=== PATIENT | female | born 1955 | race Caucasian/White ===

== ENCOUNTER 2018-05-11 21:21 | Inpatient (IN) | payer MEDICAID ==
[~2018-05-11] VITALS: Ht 165.1 cm; Wt 46.5 kg
[2018-05-11 21:40] VITALS: BP 96/48
[2018-05-11] MEDS ORDERED: HUMULIN N100 U/ML SC (21:43)
[2018-05-11] MEDS ORDERED: HUMALOG 30100 UNITS/ SC (21:43)
[2018-05-11] MEDS ORDERED: LEXAPRO20 MG PO (21:43)
[2018-05-11] MEDS ORDERED: HYDROCODON-ACE1 EAC7 PO (21:44)
[2018-05-11] MEDS ORDERED: XANAX2 MG PO (21:44)
[2018-05-11 21:52] LABS: HEMATOCRIT 33.5 % (36.0-48.0); HEMOGLOBIN 11.5 g/dL (12-16); MCH 30.3 pg (26.0-34.0); MCHC 34.3 g/dL (31.0-37.0); MCV 88.4 fL (80.0-100.0); MEAN PLATELET VOLUME 10.5 fL (7.4-10.4); PLATELET COUNT 195 10x3/uL (130-400); RBC 3.79 10x6/uL (4.00-5.40); RDW 13.7 % (11.5-14.5); WBC 20.8 10x3/uL (4.8-10.8)
--- NOTE | 2018-05-11 22:00 | NUR ---
PT STABLE, CALL LIGHT WITHIN REACH, DENIES NEEDS, WILL CONTINUE TO MONITOR. DR. BROWNING IN ROOM AT THIS TIME.
[2018-05-11 22:05] LABS: ALBUMIN 3.4 g/dL (3.4-5.0); ANION GAP 20.1 mmol/L (8-16); BILIRUBIN - TOTAL 0.47 mg/dL (0.2-1.3); CALCIUM 7.4 mg/dL (8.5-10.1); CARBON DIOXIDE 18.4 mmol/L (21.0-32.0); CREATININE - SERUM 1.5 mg/dL (0.6-1.3); POTASSIUM - SERUM 3.5 mmol/L (3.5-5.1); PROTEIN - SERUM 5.8 g/dL (6.4-8.2)
[2018-05-11 22:10] VITALS: BP 122/46
[2018-05-11 22:14] LABS: APPEARANCE CLEAR (CLEAR); BILIRUBIN NEGATIVE (NEGATIVE); COLOR YELLOW (YELLOW); GLUCOSE 1000 mg/dL (NEGATIVE); KETONE MODERATE mg/dL (NEGATIVE); NITRITE NEGATIVE (NEGATIVE); PROTEIN NEGATIVE (NEGATIVE); UROBILINOGEN NORMAL (NORMAL)
[2018-05-11 22:32] LABS: LYMPHOCYTES 10 % (15-50); MONOCYTES 3 % (2-11); NEUTROPHILS 87 % (40-80); PLATELET ESTIMATE NORMAL
[2018-05-11 22:40] VITALS: BP 127/49
--- NOTE | 2018-05-11 22:40 | NUR ---
REPORT CALLED TO JEET, ROOM 2307. PT STABLE, CALL LIGHT WITHIN REACH. WILL CONTINUE TO MONITOR.
[2018-05-11 23:15] VITALS: BP 122/52
--- NOTE | 2018-05-11 23:15 | NUR ---
ADMIT TO ROOM 2308 FROM ER, PT TRANSFERRED SELF TO BED. PT ALERT AND ANSWERING QUESTIONS APPROP. ICU MONITORS ESTAB. IVF/INSULIN GTT INFUSING TO R DAYANA, SHANIQUE C/D/I - SEE FLOWSHEET.
--- NOTE | 2018-05-11 23:20 | NUR ---
FSBS 241 - INSULIN GTT TO 5.4 UN/HR PER PROTOCOL. ADMISSION ASSESSMENT/HX PER FLOWSHEET.
[2018-05-11 23:30] VITALS: BP 128/52
[2018-05-11 23:47] VITALS: BP 122/52; BMI 17.0
[2018-05-12] VITALS (24 sets, daily range): BP systolic 117–192; BP diastolic 51–120; Ht 165.1 cm; Wt 46.5 kg
--- NOTE | 2018-05-12 01:01 | NUR ---
LAB HERE. PT REPORTS ADEQUATE PAIN RELIEF. VSS. NO SIGN OF DISTRESS.
[2018-05-12 01:27] LABS: ANION GAP 14.9 mmol/L (8-16); CALCIUM 7.4 mg/dL (8.5-10.1); CARBON DIOXIDE 23.5 mmol/L (21.0-32.0); CREATININE - SERUM 1.2 mg/dL (0.6-1.3); POTASSIUM - SERUM 3.4 mmol/L (3.5-5.1)
--- NOTE | 2018-05-12 03:15 | NUR ---
REASSESSMENT PER FLOWSHEET, NO ACUTE CHANGES. PT UP TO BSC, VOIDED 200ML CLEAR, YELLOW URINE. BACK TO BED. C/L IN REACH.
[2018-05-12 04:48] LABS: BASOPHILS 0.1 % (0-2); EOSINOPHILS 0.1 % (0-7); HEMATOCRIT 36.7 % (36.0-48.0); HEMOGLOBIN 12.6 g/dL (12-16); IMMATURE GRANULOCYTES 0.4 % (0-5); LYMPHOCYTES 12.2 % (15-50); MCH 30.4 pg (26.0-34.0); MCHC 34.3 g/dL (31.0-37.0); MCV 88.4 fL (80.0-100.0); MEAN PLATELET VOLUME 11.3 fL (7.4-10.4); MONOCYTES 7.9 % (2-11); NEUTROPHILS 79.3 % (40-80); PLATELET COUNT 204 10x3/uL (130-400); RBC 4.15 10x6/uL (4.00-5.40); RDW 13.8 % (11.5-14.5); WBC 16.5 10x3/uL (4.8-10.8)
[2018-05-12 05:14] LABS: ANION GAP 15.6 mmol/L (8-16); CALCIUM 7.7 mg/dL (8.5-10.1); CARBON DIOXIDE 22.1 mmol/L (21.0-32.0); CREATININE - SERUM 1.1 mg/dL (0.6-1.3); MAGNESIUM - SERUM 1.5 mg/dL (1.8-2.4); PHOSPHOROUS 2.3 mg/dL (2.5-4.9); POTASSIUM - SERUM 3.7 mmol/L (3.5-5.1)
--- NOTE | 2018-05-12 06:30 | NUR ---
Radha YORK PAGED AND NOTIFIED OF AM LAB AND INSULIN GTT AT 0.5 UN/HR, FSBS 116. NEW ORDERS REC'D.
[2018-05-12] MEDS ORDERED: AMBIEN10 MG PO (06:41)
[2018-05-12] MEDS ORDERED: COZAAR100 MG PO ×2 (06:42→06:43)
--- NOTE | 2018-05-12 07:00 | NUR ---
REC'D REPORT AND RESUMED CARE, AAO, VSS, C/O PAIN 10/26 IN BACK, LEFT EJ PIV WITH D51/2 NS WITH 20 KCL INFUSING, ASSESSMENT COMPLETE PER FLOWHSEET, SELF REPOSITIONS, CALL LIGHT IN REACH, NO NEEDS AT THIS TIME
--- NOTE | 2018-05-12 07:45 | NUR ---
BREAKFAST TRAY TO BEDSIDE, INDEPENDENT WITH SET UP AND EATING
--- NOTE | 2018-05-12 09:00 | NUR ---
MORNING MEDS GIVEN PER JUN FLOWSHEET
--- NOTE | 2018-05-12 11:00 | NUR ---
REASSESSMENT COMPLETE, NO ACUTE CHANGE FROM PREVIOUS ASSESSMENT
[2018-05-12 11:42] LABS: CALCIUM 7.5 mg/dL (8.5-10.1); CREATININE - SERUM 0.9 mg/dL (0.6-1.3)
[2018-05-12 11:53] LABS: ANION GAP 21.1 mmol/L (8-16); CARBON DIOXIDE 16.3 mmol/L (21.0-32.0); POTASSIUM - SERUM 4.4 mmol/L (3.5-5.1)
--- NOTE | 2018-05-12 13:45 | NUR ---
GLUCOSE 404, 20 UNITS REG ISULIN GIVEN PER S/S
[2018-05-12 14:02] LABS: ANION GAP 21.3 mmol/L (8-16); CALCIUM 7.7 mg/dL (8.5-10.1); POTASSIUM - SERUM 4.3 mmol/L (3.5-5.1)
--- NOTE | 2018-05-12 15:00 | NUR ---
SLEEPING WITH NO SIGN OF DISTRESS, VSS, NO ACUTE CHANGE FROM PREVIOUS
--- NOTE | 2018-05-12 16:30 | NUR ---
FSBS 174, TRENDING DOWN, HELD REGULAR INSULIN DOSE
--- NOTE | 2018-05-12 16:39 | HP ---
PATIENT: CAROLIN SEN MEDICAL RECORD: [id number] ACCOUNT: [id number] LOCATION:[facility] D.2308 : 57 ADMISSION DATE: 05/11/18 PCP: SHAVONNE DIAZ MD HISTORY AND PHYSICAL EXAMINATION HISTORY OF PRESENT ILLNESS: Ms. Sen is a 63-year-old white female with type 1 diabetes for over 40 years, who presents to [facility] in [place], sugar there is over 600. She sees an laser engineer in [place]. She is transferred here for higher level of care. She is being admitted to the ICU for DKA protocol. PAST MEDICAL HISTORY: Significant for type 1 diabetes. She also has a history of hypertension. PAST SURGICAL HISTORY: Include a section times 2 and oophorectomy. ALLERGIES: TANJA WHICH ACTUALLY JUST CAUSE A COUGH, SULFA, KETOROLAC, PROPOXYPHENE, AND PROCHLORPERAZINE. HOME MEDICATIONS: She takes insulin NPH 20 units in the morning, 10 units in the evening, Humalog sliding scale, Lexapro 20 mg a day, hydrocodone p.r.n., and alprazolam 2 mg b.i.d. FAMILY HISTORY: Noncontributory. SOCIAL HISTORY: The patient smokes a pack per day, but has been trying to cut back. She denies recent alcohol use. REVIEW OF SYSTEMS: She complains of being rather swimmy-headed. She has had some nausea, some abdominal pain. She denies any chest pain. She has some chronic shortness of breath, which is currently stable. Denies any edema. PHYSICAL EXAMINATION: GENERAL: She is alert and cooperative. HEENT: Head is normocephalic, sclerae nonicteric. Mucous membranes are a little dry. HEART: Regular with mild tachycardia. LUNGS: Clear with a few scattered rhonchi. ABDOMEN: Soft. EXTREMITIES: Lower extremities reveal no edema. NEUROLOGIC: Without any gross focal deficits. IMPRESSION: 1. Diabetic ketoacidosis. 2. Probable chronic obstructive pulmonary disease. 3. Chronic pain secondary to low back. 4. Tobacco user. PLAN: Admit to ICU, DKA protocol. See orders for plan. TRANSINT:[id number] Voice Confirmation ID: [id number] DOCUMENT ID: [id number] HISTORY AND PHYSICAL [id number] CAROLIN SEN STEPHANI BROWNING DO at 1639 CC: [id number] DICTATION DATE: 05/11/182318 PATHOLOGY SPECIALIST: 05/12/18 0056 ADM IN [place] [id number] [place] [id number]
--- NOTE | 2018-05-12 17:00 | NUR ---
DINNER TO BEDSIDE, INDEPENDENT WITH SET UP AND EATING
[2018-05-12 17:21] LABS: CALCIUM 7.9 mg/dL (8.5-10.1)
[2018-05-12 17:22] LABS: ANION GAP 16.1 mmol/L (8-16); CARBON DIOXIDE 20.4 mmol/L (21.0-32.0); POTASSIUM - SERUM 3.5 mmol/L (3.5-5.1)
--- NOTE | 2018-05-12 19:30 | NUR ---
SHIFT ASSESSMENT COMPLETE PER NURSING FLOWSHEET, PATIENT INDEPENDENTLY REPOSITIONS SELF, C/L IN REACH
[2018-05-12 20:27] LABS: ANION GAP 14.2 mmol/L (8-16); CARBON DIOXIDE 24.7 mmol/L (21.0-32.0); CREATININE - SERUM 0.9 mg/dL (0.6-1.3); POTASSIUM - SERUM 3.9 mmol/L (3.5-5.1)
--- NOTE | 2018-05-12 21:00 | NUR ---
PATIENT WATCHING T.V., NO NEEDS VOICED OR NOTED AT THIS TIME, CONTINUE POC
--- NOTE | 2018-05-12 23:00 | NUR ---
REPORT CALLED TO CARLOS SANTOS FOR THIS PATIENT TO TRANSFER TO [facility]-SURG ROOM 2226.
--- NOTE | 2018-05-12 23:05 | MORECARE ---
CASE MANAGEMENT DISCHARGE SUMMARY PATIENT: CAROLIN SEN UNIT: [id number] ADM DATE: 05/11/18 AGE: 63 : 57 SEX: F ROOM/BED: D.2308 AUTHOR: KELIN POTTS PHYSICIAN: REFERRING PHYSICIAN: STEPHANI BROWNING DO DATE OF SERVICE: 05/12/18 Discharge Plan Patient Name: CAROLIN SEN Facility: [facility]:[place] : 1955 Planned Disposition: Home Anticipated Discharge Date: Discharge Date: Expected LOS: Initial Reviewer: [email or web address] Initial Review Date: 05/12/2018 Generated: 05/13/18 12:05 am Patient Name: CAROLIN SEN Page 87266 at 2305 All edits/amendments must be made on the electronic document DICTATION DATE: 05/12/182304 DITCHING MACHINE OPERATING ENGINEER: REMY 05/12/182304 RPT#: [id number] DC DATE: STATUS: ADM IN [facility] [address] [place] [address] END OF REPORT
--- NOTE | 2018-05-12 23:12 | MORECARE ---
CASE MANAGEMENT DISCHARGE SUMMARY PATIENT: CAROLIN SEN UNIT: [id number] ADM DATE: 05/11/18 AGE: 63 : 57 SEX: F ROOM/BED: D.2308 AUTHOR: KATLYN,DOC PHYSICIAN: REFERRING PHYSICIAN: STEPHANI BROWNING DO DATE OF SERVICE: 05/12/18 Discharge Plan Patient Name: CAROLIN SEN Facility: [facility]:[place] : 1955 Planned Disposition: Home Anticipated Discharge Date: Discharge Date: Expected LOS: Initial Reviewer: [email or web address] Initial Review Date: 05/12/2018 Generated: 05/13/18 12:12 am Comments DCP- Discharge Planning Updated by [email or web address]: Sharon Sanchez on 05/12/18 10:[address] Patient Name: CAROLIN SEN Admission Status: ER Accout number: [id number] Admission Date: 05-11-2018 : 1955 Admission Diagnosis: Attending: STEPHANI BROWNING Current LOS: 1 Anticipated DC Date: Planned Disposition: Home Primary Insurance: MEDICAID [place] Discharge Planning Comments: CM met with patient at bedside after obtaining verbal consent. Patient states she plans on returning home after discharge with her mother. Patient denies any discharge needs at this time. CM will continue to follow and assist as needed for discharge planning / needs. Senior Wind Energy Consultant: Sharon Sanchez DCPIA - Discharge Planning Initial Assessment Updated by [email or web address]: Sharon Sanchez on 05/12/18 11:08 pm * Is the patient Alert and Oriented? Yes * How many steps to enter\exit or inside your home? * PCP ROWENA NOGUEIRA * Pharmacy [facility] * Preadmission Environment Home with Family * ADLs Independent * Equipment Glucometer * List name and contact numbers for known caregivers / representatives who currently or will assist patient after discharge: ESTHELA PALMER - [facility] - [phone] * Verbal permission to speak to the caregivers and representatives has been obtained from the patient. N/A * Community resources currently utilized None * Additional services required to return to the preadmission environment? No * Can the patient safely return to the preadmission environment? Yes * Has this patient been hospitalized within the prior 30 days at any hospital? No Last DP export: 05/12/18 10:05 p Patient Name: CAROLIN SEN Page 18303 at 2312 All edits/amendments must be made on the electronic document DICTATION DATE: 05/12/182310 GRADUATING MACHINE OPERATOR: REMY 05/12/182310 RPT#: [id number] DC DATE: STATUS: ADM IN [facility] [address] [place] [address] END OF REPORT
--- NOTE | 2018-05-13 | NUR ---
PT ARRIVED ON UNIT VIA WHEELCHAIR. POSITIONED IN BED FOR COMFORT AND RE-STARTED IV FLUIDS. ORIENTED TO ROOM AND CALL LIGHT. BED ALARM ON FOR SAFETY TONIGHT PT VERY SLEEPY.
[2018-05-13 00:54] VITALS: BP 132/65
[2018-05-13 05:04] VITALS: BP 142/71
[2018-05-13 09:46] VITALS: BP 150/72
[2018-05-13 11:03] LABS: BASOPHILS 0 % (0-2); EOSINOPHILS 1.8 % (0-7); HEMATOCRIT 32.5 % (36.0-48.0); HEMOGLOBIN 10.9 g/dL (12-16); IMMATURE GRANULOCYTES 0.2 % (0-5); LYMPHOCYTES 26.7 % (15-50); MCH 30.1 pg (26.0-34.0); MCHC 33.5 g/dL (31.0-37.0); MCV 89.8 fL (80.0-100.0); MEAN PLATELET VOLUME 10.8 fL (7.4-10.4); MONOCYTES 8.1 % (2-11); NEUTROPHILS 63.2 % (40-80); RBC 3.62 10x6/uL (4.00-5.40); RDW 14.1 % (11.5-14.5)
[2018-05-13 11:12] LABS: PLATELET COUNT 132 10x3/uL (130-400); WBC 5.7 10x3/uL (4.8-10.8)
[2018-05-13 11:18] LABS: ALBUMIN 2.8 g/dL (3.4-5.0); ALKALINE PHOSPHATASE 45 U/L (46-116); ALT (SGPT) 14 U/L (10-68); BILIRUBIN - TOTAL 0.35 mg/dL (0.2-1.3); CALC OSMOLALITY 289 mosm/kg (275-300); CALCIUM 7.5 mg/dL (8.5-10.1); CHLORIDE - SERUM 105 mmol/L (98-107); CREATININE - SERUM 0.8 mg/dL (0.6-1.3); GLUCOSE 353 mg/dL (74-106); POTASSIUM - SERUM 3.9 mmol/L (3.5-5.1); PROTEIN - SERUM 4.9 g/dL (6.4-8.2); SODIUM 138 mmol/L (136-145); UREA NITROGEN 13 mg/dL (7-18); eGFR NON AFRICAN AMERICAN 77 mL/min (90-120)
[2018-05-13 18:12] VITALS: BP 148/74
[2018-05-13 19:00] VITALS: BP 153/78
[2018-05-14] VITALS: BP 149/65
[2018-05-14 03:00] VITALS: BP 138/59
[2018-05-14 04:46] LABS: BASOPHILS 0.3 % (0-2); EOSINOPHILS 4.5 % (0-7); HEMATOCRIT 35.5 % (36.0-48.0); HEMOGLOBIN 11.7 g/dL (12-16); LYMPHOCYTES 42.8 % (15-50); MCH 30.1 pg (26.0-34.0); MCV 91.3 fL (80.0-100.0); MEAN PLATELET VOLUME 11.2 fL (7.4-10.4); MONOCYTES 8.8 % (2-11); NEUTROPHILS 43.6 % (40-80); PLATELET COUNT 141 10x3/uL (130-400); RBC 3.89 10x6/uL (4.00-5.40); RDW 14.1 % (11.5-14.5)
[2018-05-14 05:17] LABS: ALBUMIN 2.7 g/dL (3.4-5.0); ALKALINE PHOSPHATASE 46 U/L (46-116); BILIRUBIN - TOTAL 0.28 mg/dL (0.2-1.3); CALCIUM 7.6 mg/dL (8.5-10.1); CARBON DIOXIDE 28.7 mmol/L (21.0-32.0); CHLORIDE - SERUM 108 mmol/L (98-107); CREATININE - SERUM 0.6 mg/dL (0.6-1.3); POTASSIUM - SERUM 3.9 mmol/L (3.5-5.1); PROTEIN - SERUM 4.9 g/dL (6.4-8.2); SODIUM 143 mmol/L (136-145); UREA NITROGEN 10 mg/dL (7-18); eGFR NON AFRICAN AMERICAN > 90 mL/min (90-120)
[2018-05-14 05:23] LABS: ALT (SGPT) 19 U/L (10-68); CALC OSMOLALITY 284 mosm/kg (275-300); GLUCOSE 124 mg/dL (74-106)
--- NOTE | 2018-05-14 08:45 | NUR ---
PATIENT IN BED WITH IV INTACT. NO COMPLAINTS OR SIGNS OF DISTRESS. CALL LIGHT WITHIN REACH.
[2018-05-14 08:55] VITALS: BP 161/79
[2018-05-14 12:23] VITALS: BP 153/65
[2018-05-14 16:45] VITALS: BP 170/77
--- NOTE | 2018-05-14 18:50 | NUR ---
PATIENT IN BED WITH NO COMPLAINTS OR SIGNS OF DISTRESS. IV INTACT. CALL LIGHT WITHIN REACH.
[2018-05-14 19:00] VITALS: BP 103/35
[2018-05-15] VITALS: BP 175/79
[2018-05-15 03:00] VITALS: BP 156/61
[2018-05-15 06:17] LABS: HEMATOCRIT 34.7 % (36.0-48.0); HEMOGLOBIN 11.9 g/dL (12-16); LYMPHOCYTES 41.6 % (15-50); MCH 31.1 pg (26.0-34.0); MCHC 34.3 g/dL (31.0-37.0); MCV 90.6 fL (80.0-100.0); MEAN PLATELET VOLUME 11.9 fL (7.4-10.4); NEUTROPHILS 45.2 % (40-80); RBC 3.83 10x6/uL (4.00-5.40); RDW 13.5 % (11.5-14.5); WBC 3.3 10x3/uL (4.8-10.8)
[2018-05-15 06:26] LABS: PLATELET COUNT 92 10x3/uL (130-400)
[2018-05-15 06:27] LABS: ALBUMIN 2.7 g/dL (3.4-5.0); ALKALINE PHOSPHATASE 49 U/L (46-116); BILIRUBIN - TOTAL 0.26 mg/dL (0.2-1.3); CALC OSMOLALITY 288 mosm/kg (275-300); CALCIUM 7.8 mg/dL (8.5-10.1); CARBON DIOXIDE 30.2 mmol/L (21.0-32.0); CHLORIDE - SERUM 106 mmol/L (98-107); GLUCOSE 137 mg/dL (74-106); POTASSIUM - SERUM 4.2 mmol/L (3.5-5.1); PROTEIN - SERUM 4.9 g/dL (6.4-8.2); SODIUM 144 mmol/L (136-145); UREA NITROGEN 12 mg/dL (7-18)
[2018-05-15 06:29] LABS: ALT (SGPT) 36 U/L (10-68); CREATININE - SERUM 0.1 mg/dL (0.6-1.3); eGFR NON AFRICAN AMERICAN > 90 mL/min (90-120)
[2018-05-15 07:13] LABS: PLATELET ESTIMATE DECREASED
[2018-05-15 08:48] VITALS: BP 181/79
--- NOTE | 2018-05-15 10:56 | NUR ---
ALERT AND ORIENTED BS MONITORED Q 4 HRS. BS 429 WITH 12 UNITS GIVEN SQ. NO S/S OF HYPERGLYGEMIA NOTED. NORCO GIVEN FOR BACK PAIN AND EFFECTIVE. LT. IJ INTACT WITH IVF INFUSING AT PRECRIBED RATE. ENCOURAGED TO USE CALL LIGHT FOR ASSIST.
[2018-05-15 12:00] VITALS: BP 167/77
[2018-05-15 16:00] VITALS: BP 145/65
[2018-05-15 19:00] VITALS: BP 157/61
--- NOTE | 2018-05-15 23:00 | NUR ---
FSBS 403 - GAVE 12 UNITS INSULIN PER SS. NO OTHER NEEDS. COMPLETE ASSESSMENT PER FLOW-SHEET. NO OTHER NEEDS. WILL CONTINUE TO MONITOR.
[2018-05-16] VITALS: BP 158/59
[2018-05-16 03:00] VITALS: BP 134/61
--- NOTE | 2018-05-16 03:00 | NUR ---
FSBS 44 - PT IS ASYMPTOMATIC. PT DRINKING ORANGE JUICE, MILK AND REBA CRACKERS. WILL REASSESS AND CONTINUE TO MONITOR.
[2018-05-16 07:23] LABS: ALBUMIN 2.9 g/dL (3.4-5.0); ALKALINE PHOSPHATASE 50 U/L (46-116); ALT (SGPT) 36 U/L (10-68); BILIRUBIN - TOTAL 0.28 mg/dL (0.2-1.3); CALCIUM 8.1 mg/dL (8.5-10.1); CARBON DIOXIDE 30.2 mmol/L (21.0-32.0); CHLORIDE - SERUM 103 mmol/L (98-107); SODIUM 141 mmol/L (136-145)
[2018-05-16 07:30] LABS: CALC OSMOLALITY 286 mosm/kg (275-300); CREATININE - SERUM 0.4 mg/dL (0.6-1.3); GLUCOSE 188 mg/dL (74-106); POTASSIUM - SERUM 4.9 mmol/L (3.5-5.1); UREA NITROGEN 16 mg/dL (7-18); eGFR NON AFRICAN AMERICAN > 90 mL/min (90-120)
[2018-05-16 08:34] LABS: BASOPHILS 0.5 % (0-2); EOSINOPHILS 5.8 % (0-7); HEMATOCRIT 35.9 % (36.0-48.0); HEMOGLOBIN 11.9 g/dL (12-16); IMMATURE GRANULOCYTES 0.2 % (0-5); LYMPHOCYTES 34.8 % (15-50); MCH 30.1 pg (26.0-34.0); MCHC 33.1 g/dL (31.0-37.0); MCV 90.7 fL (80.0-100.0); MONOCYTES 9.6 % (2-11); NEUTROPHILS 49.1 % (40-80); RBC 3.96 10x6/uL (4.00-5.40); RDW 13.6 % (11.5-14.5)
[2018-05-16 08:47] LABS: WBC 4.2 10x3/uL (4.8-10.8)
[2018-05-16 08:48] LABS: PLATELET COUNT 144 10x3/uL (130-400)
[2018-05-16 09:00] VITALS: BP 172/70
[2018-05-16 13:34] VITALS: BP 153/68
[2018-05-16 16:00] VITALS: BP 130/59
[2018-05-16 21:13] VITALS: BP 130/57
--- NOTE | 2018-05-16 23:44 | NUR ---
SITTING IN BEDSIDE CHAIR.FSBS 285 REFUSED SNACK AND REGULAR SLIDING SCALE INSULIN OF 6UNITS STATES IF I TAKE THAT MY SUGAR WILL BOTTOM OUT.STATES NEXT TIME WE TAKE IT I MIGHT TAKE IT IF ITS STILL HIGH.EXPLAINED TO PATIENT IF STARTS TO EXPERIENCE ANY SIGNS OR SYMPTOMS OF HYPO OR HYPERGLYCEMIA.WILL CONTINUE TO MONITOR FOR ANY CHGES.AND FOLLOW CURRENT PLAN OF CARE
[2018-05-17 01:32] VITALS: BP 149/71
--- NOTE | 2018-05-17 01:54 | NUR ---
RESTING QUITELY IN BED RESP UNLABORED NO APPARENT DISTRESS CALL LIGHT IN REACH
[2018-05-17 05:23] VITALS: BP 148/70
[2018-05-17 07:11] LABS: BASOPHILS 0.2 % (0-2); EOSINOPHILS 4.8 % (0-7); HEMATOCRIT 36.2 % (36.0-48.0); HEMOGLOBIN 11.9 g/dL (12-16); IMMATURE GRANULOCYTES 0.2 % (0-5); LYMPHOCYTES 30.7 % (15-50); MCH 29.9 pg (26.0-34.0); MCHC 32.9 g/dL (31.0-37.0); MEAN PLATELET VOLUME 11.4 fL (7.4-10.4); MONOCYTES 10.7 % (2-11); NEUTROPHILS 53.4 % (40-80); PLATELET COUNT 172 10x3/uL (130-400); RBC 3.98 10x6/uL (4.00-5.40); RDW 13.5 % (11.5-14.5); WBC 4.6 10x3/uL (4.8-10.8)
[2018-05-17 07:33] LABS: ALBUMIN 3.3 g/dL (3.4-5.0); ALKALINE PHOSPHATASE 49 U/L (46-116); ALT (SGPT) 34 U/L (10-68); CALCIUM 8.2 mg/dL (8.5-10.1); CARBON DIOXIDE 31.9 mmol/L (21.0-32.0); CHLORIDE - SERUM 102 mmol/L (98-107); POTASSIUM - SERUM 4.4 mmol/L (3.5-5.1); SODIUM 138 mmol/L (136-145); UREA NITROGEN 18 mg/dL (7-18)
[2018-05-17 07:34] LABS: CALC OSMOLALITY 287 mosm/kg (275-300); CREATININE - SERUM 0.6 mg/dL (0.6-1.3); GLUCOSE 283 mg/dL (74-106); eGFR NON AFRICAN AMERICAN > 90 mL/min (90-120)
[2018-05-17 08:28] VITALS: BP 150/66
[2018-05-17] MEDS ORDERED: HUMULIN N100 U/ML SC (10:21)
--- NOTE | 2018-05-17 11:10 | NUR ---
CALLED PT SISTER ESTHELA AT [phone] IN REGARDS TO PT DC, NO ANSWER UNABLE TO LEAVE MESSAGE WILL CONTINUE TO TRY AND REACH SISTER
--- NOTE | 2018-05-17 11:17 | MORECARE ---
CASE MANAGEMENT DISCHARGE SUMMARY PATIENT: CAROLIN SEN UNIT: [id number] ADM DATE: 05/11/18 AGE: 63 : 57 SEX: F ROOM/BED: D.2226 AUTHOR: KELIN POTTS PHYSICIAN: REFERRING PHYSICIAN: STEPHANI BROWNING DO DATE OF SERVICE: 05/17/18 Discharge Plan Patient Name: CAROLIN SEN Facility: [facility]:[place] : 1955 Planned Disposition: Home Anticipated Discharge Date: Discharge Date: Expected LOS: Initial Reviewer: [email or web address] Initial Review Date: 05/12/2018 Generated: 05/17/18 12:17 pm Comments DCP- Discharge Planning Updated by [email or web address]: Vickie Lester on 05/17/18 10:[address] Patient Name: CAROLIN SEN Encounter No: [id number] : 1955 Primary Insurance: MEDICAID [place] Anticipated DC Date: Planned Disposition: Home External Planned Provider: : DCP follow-up note: Patient in agreement with discharge plan. No changes to plan. Case management will follow and assist as needed. Vickie Lester DCP- Discharge Planning Updated by [email or web address]: Sharon Sanchez on 05/12/18 10:[address] Patient Name: CAROLIN SEN Admission Status: ER Accout number: [id number] Admission Date: 05-11-2018 : 1955 Admission Diagnosis: Attending: STEPHANI BROWNING Current LOS: 1 Anticipated DC Date: Planned Disposition: Home Primary Insurance: MEDICAID [place] Discharge Planning Comments: CM met with patient at bedside after obtaining verbal consent. Patient states she plans on returning home after discharge with her mother. Patient denies any discharge needs at this time. CM will continue to follow and assist as needed for discharge planning / needs. Union Contract Representative: Sharon Sanchez DCPIA - Discharge Planning Initial Assessment Updated by [email or web address]: Sharon Sanchez on 05/12/18 11:08 pm * Is the patient Alert and Oriented? Yes * How many steps to enter\exit or inside your home? * PCP ROWENA NOGUEIRA * Pharmacy [facility] * Preadmission Environment Home with Family * ADLs Independent * Equipment Glucometer * List name and contact numbers for known caregivers / representatives who currently or will assist patient after discharge: ESTHELA PALMER - SISTER - [phone] * Verbal permission to speak to the caregivers and representatives has been obtained from the patient. N/A * Community resources currently utilized None * Additional services required to return to the preadmission environment? No * Can the patient safely return to the preadmission environment? Yes * Has this patient been hospitalized within the prior 30 days at any hospital? No Last DP export: 05/12/18 10:12 p Patient Name: CAROLIN SEN Page 00109 at 1117 All edits/amendments must be made on the electronic document DICTATION DATE: 05/17/181115 AIRPLANE DISPATCHER: REMY 05/17/181115 RPT#: [id number] DC DATE: STATUS: ADM IN [facility] [address] [place] [address] END OF REPORT
--- NOTE | 2018-05-17 11:45 | NUR ---
CALLED WORK NUMBER FOR PT SISTER, AFTER SEVERAL RINGS, PHONE IS ENETERED WITH EROTIC MESSAGE, HUNG UP WILL TRY HOME NUMBER AGAIN
--- NOTE | 2018-05-17 12:32 | NUR ---
ATTEMPTED TO CALL SISTER AGAIN, NO ANSWER, WILL CONTINUE TO TRY AND CONTACT, MESSAGE STATES YOUR [employer] IS NOT ANSWERING, PLEASE TRY YOUR CALL AGAIN LATER, YOUR CALL IS NOW BEING DISCONNECTED. UNABLE TO LEAVE MESSAGE
--- NOTE | 2018-05-17 12:56 | NUR ---
SPOKE TO PT SISTER. NUMBER IS [phone] STATED SHE WILL BE HERE IN 2 HOURS
--- NOTE | 2018-05-17 13:51 | NUR ---
PT LYING IN BED REQUESTED PAIN MEDICATION, PT LEGS WERE JUST WRAPPED WITH BANDAGES ADVISED PT THAT IT WAS NOT TIME FOR MEDS YET PT HAS ANOTHER HOUR, CONTINUE [facility] PLAN OF CARE
--- NOTE | 2018-05-17 17:45 | NUR ---
PT DC HOME WITH FAMILY MEMEBER, PT HAD PAIN PILL UPON DEPARTURE GIVEN BY VENKAT NATH, ALL QUESTIONS ANSWERED
--- NOTE | 2018-05-18 07:13 | MORECARE ---
CASE MANAGEMENT DISCHARGE SUMMARY PATIENT: CAROLIN SEN UNIT: [id number] ADM DATE: 05/11/18 AGE: 63 : 57 SEX: F ROOM/BED: D.2226 AUTHOR: KATLYN,DOC PHYSICIAN: REFERRING PHYSICIAN: STEPHANI BROWNING DO DATE OF SERVICE: 05/18/18 Discharge Plan Patient Name: CAROLIN SEN Facility: [facility]:[place] : 1955 Planned Disposition: Home Anticipated Discharge Date: Discharge Date: 05/17/2018 Expected LOS: 0 Initial Reviewer: [email or web address] Initial Review Date: 05/12/2018 Generated: 05/18/18 8:12 am Comments DCP- Discharge Planning Updated by [email or web address]: Vickie Lester on 05/17/18 10:[address] Patient Name: CAROLIN SEN Encounter No: [id number] : 1955 Primary Insurance: MEDICAID [place] Anticipated DC Date: Planned Disposition: Home External Planned Provider: : DCP follow-up note: Patient in agreement with discharge plan. No changes to plan. Case management will follow and assist as needed. Vickie Lester DCP- Discharge Planning Updated by [email or web address]: Sharon Sanchez on 05/12/18 10:[address] Patient Name: CAROLIN SEN Admission Status: ER Accout number: [id number] Admission Date: 05-11-2018 : 1955 Admission Diagnosis: Attending: STEPHANI BROWNING Current LOS: 1 Anticipated DC Date: Planned Disposition: Home Primary Insurance: MEDICAID [place] Discharge Planning Comments: CM met with patient at bedside after obtaining verbal consent. Patient states she plans on returning home after discharge with her mother. Patient denies any discharge needs at this time. CM will continue to follow and assist as needed for discharge planning / needs. Panel Machine Operator: Sharon Sanchez DCPIA - Discharge Planning Initial Assessment Updated by [email or web address]: Sharon Sanchez on 05/12/18 11:08 pm * Is the patient Alert and Oriented? Yes * How many steps to enter\exit or inside your home? * PCP ROWENA NOGUEIRA * Pharmacy [facility] * Preadmission Environment Home with Family * ADLs Independent * Equipment Glucometer * List name and contact numbers for known caregivers / representatives who currently or will assist patient after discharge: ESTHELA PALMER - SISTER - [phone] * Verbal permission to speak to the caregivers and representatives has been obtained from the patient. N/A * Community resources currently utilized None * Additional services required to return to the preadmission environment? No * Can the patient safely return to the preadmission environment? Yes * Has this patient been hospitalized within the prior 30 days at any hospital? No Last DP export: 05/17/18 10:17 a Patient Name: CAROLIN SEN Page 68277 at 0713 All edits/amendments must be made on the electronic document DICTATION DATE: 05/18/18711 SMART ENERGY SPECIALIST: REMY 05/18/18711 RPT#: [id number] DC DATE:05/17/18 STATUS: DIS IN [facility] [address] [place] [address] END OF REPORT
== END 2018-05-17 17:46 | disposition home or self-care (01) | DRG 638 ==
LOC: D.ER 21:21 → D.MS 22:28 → D.ICU 22:28 → D.MS 05-12 23:39 → D.SDCHOLD 05-16 12:53 → D.MS 05-16 12:54
PROVIDERS: Family Medicine; ADMIT Family Medicine
DX: E11.10 Type 2 diabetes mellitus with ketoacidosis without coma (principal); E44.1 Mild protein-calorie malnutrition; Z68.1 Body mass index [BMI] 19.9 or less, adult; I10 Essential (primary) hypertension; E11.649 Type 2 diabetes mellitus with hypoglycemia without coma